=== PATIENT | male | born 1965 | race Caucasian/White ===

== ENCOUNTER 2018-07-16 05:18 | Day surgery (SDC) | payer OTHER ==
[2018-07-14 16:45] VITALS: BMI 25.8
[2018-07-16] MEDS ORDERED: BUPIVACAINE HCL/PF 0.5% (5MG/ML) 10 ML VIAL ONE (08:19)
[2018-07-16] MEDS ORDERED: MIDAZOLAM HCL 2 MG/2 ML SINGLE DOSE VIAL ONE ×4 (08:20→09:11)
--- NOTE | 2018-07-16 08:41 | HP ---
[facility] - Chief Complaint Chief Complaint: right tib fx - Past Medical History Allergies/Adverse Reactions: Allergies Allergy/AdvReac Type Severity Reaction Status Date / Time No Known Allergies Allergy Verified 07/14/18 16:30 - Current Medications Current Medications: Home Medications Medication Instructions Recorded Oxycodone HCl 5 mg PO Q4H PRN #40 capsule MDD 6 07/16/18 Satellite Physical Exam - Physical Examination Vital Signs: Vital Signs Period Temp Pulse Resp BP Sys/Allan Pulse Ox Last 24 Hr 98.1 F-98.1 F 89-89 20-20 135-135/74-74 100 General Appearance: Well Nourished, Well Developed, Alert & Oriented x3 ENT: Clear Lung: Normal air movement Heart: Regular rate & rhythm Extremities: Other (right lle- splint intact, + ttp, + swelling, decr rom, nvi xrays show displaced tibial shaft fx) Neurological: Intact, Alert, Oriented Satellite Impression/Plan - Impression/Plan Impression: right tibia fx Operative Procedure: right tibia IM soila Date to be Performed: 07/16/18
[2018-07-16] MEDS ORDERED: PROPOFOL 20 ML ONE ×2 (09:17)
[2018-07-16] MEDS ORDERED: ceFAZolin SODIUM 1 GM VIAL IVPB ONE ×2 (09:20→12:40)
--- NOTE | 2018-07-16 10:39 | OP ---
Operative Note - Note: Operative Date: 07/16/18 ([facility]) Pre-Operative Diagnosis: right tibial shaft fx Operation: right tibia IM soila Post-Operative Diagnosis: Same as Pre-op Surgeon: Paul Fritz Inward Toll Operator: Jason Elizondo Anesthesiologist/JIGSAWYER: Deb Arndt MD Anesthesia: General, Local Estimated Blood Loss (mls): 50 Operative Report Dictated: Yes
[2018-07-16] MEDS ORDERED: CEFAZOLIN 1 GM in DEXTROSE 5%-WATER - 50 ML IVPB ONE (10:42)
[2018-07-16] MEDS ORDERED: oxyCODONE HCL 5 MG TABLET PO PRN (10:52)
[2018-07-16] MEDS ORDERED: ONDANSETRON 4 MG/2 ML VIAL IVPUSH PRN (10:52)
[2018-07-16] MEDS ORDERED: PROMETHAZINE HCL 25 MG/1 ML VIAL IVPUSH PRN (10:52)
[2018-07-16] MEDS ORDERED: LACTATED RINGERS SOLUTION 1,000 ML IV SCH (11:00)
--- NOTE | 2018-07-16 11:16 | OP ---
DATE OF OPERATION: 07/16/2018 PREOPERATIVE DIAGNOSIS: Right distal one-third tibia-fibula fracture. POSTOPERATIVE DIAGNOSIS: Right distal one-third tibia-fibula fracture. PROCEDURE: Right intramedullary rodding of right tibial shaft fracture. SURGICAL ATTENDING: Paul Fritz MD WAX BLEACHER: ANNIE Hillman ANESTHESIA: General and regional. CLOSURE: A Hopkins T2 soila 360 x 11 mm with appropriate interlocks statically, number 1 Vicryl fascia, 0 and 2-0 subcutaneous, navin to skin. ESTIMATED BLOOD LOSS: 50 mL. COMPLICATIONS: None. CONDITION: To Recovery in stable condition. DESCRIPTION OF THE PROCEDURE: The patient was taken to the operating room on July 16, 2018. General anesthesia as well as regional anesthesia was administered by the anesthesiologist. IV Kefzol was administered prophylactically prior to the case. The right lower extremity was prepped and draped in the usual sterile fashion. A 6-cm longitudinal incision medial to the patella tendon was incised. Hemostasis achieved with Bovie cautery. Sharp dissection was carried down just medial to the patella tendon. A periosteal elevator was used to clear out the insertion site for the soila. A guidewire was drilled from the insertion site into the intramedullary canal. Proper placement was confirmed on the AP and lateral plane by using the imaging intensifier. This was overreamed with a proximal reamer. A ball tip guidewire was placed down the intramedullary canal passed the fracture centrally into the distal fragment. This was measured for length, reamed until a chatter was obtained at 11-1/2. A 360 x 10 mm Hopkins T2 soila was then malleted down into place. Using the outrigger, two distal screws were placed through a stab incision mediolaterally. The appropriate length screws. Two distal screws were used with the outrigger were static, two proximal screws one was static and one was dynamic. The outrigger was removed. Proper placement of all hardware with excellent reduction of the fracture was confirmed in the AP and lateral plane by using the image intensifier. All incisions were irrigated and closed with 0 Vicryl fascia, 2-0 subcutaneous, and navin to the skin. Sterile pressure dressing was applied, patient awakened from anesthesia and transferred to recovery in stable condition. No complications. Estimated blood loss less than 50 mL. Nicola KENNEDY/[id number]
[2018-07-16] MEDS ORDERED: CEFAZOLIN 1 GM/D5W 1 GM/50 ML BAG ONE (12:32)
[2018-07-16 13:22] VITALS: BP 127/92; PULSE 81; TEMP 97.8
== END 2018-07-16 13:15 | disposition home or self-care (01) ==
LOC: JASU-SURG 05:18
PROVIDERS: ATTEND Orthopaedic Surgery
PROC: 0QHG06Z Insertion of Intramedullary Internal Fixation Device into Right Tibia, Open Approach (ICD-10-PCS; 2018-07-16)
PROC: 0QHJ06Z Insertion of Intramedullary Internal Fixation Device into Right Fibula, Open Approach (ICD-10-PCS; principal; 2018-07-16 09:00)
DX: S82.231A Displaced oblique fracture of shaft of right tibia, initial encounter for closed fracture (principal); X58.XXXA Exposure to other specified factors, initial encounter; Y93.9 Activity, unspecified; Y92.9 Unspecified place or not applicable; Y99.9 Unspecified external cause status
CPT/HCPCS: 27759; C1713; 76000-TC-FY; 94760

== ENCOUNTER 2018-09-01 12:32 | Day surgery (SDC) | payer OTHER ==
[2018-08-31 08:44] VITALS: BMI 25.8
--- NOTE | 2018-09-01 09:44 | HP ---
[facility] - Chief Complaint Chief Complaint: right tibia orif - Past Medical History Allergies/Adverse Reactions: Allergies Allergy/AdvReac Type Severity Reaction Status Date / Time No Known Allergies Allergy Verified 09/01/18 08:23 - Current Medications Current Medications: Home Medications Medication Instructions Recorded Oxycodone HCl 5 mg PO Q4H PRN #30 capsule MDD 6 09/01/18 Satellite Physical Exam - Physical Examination Vital Signs: Vital Signs Period Temp Pulse Resp BP Sys/Allan Pulse Ox Last 24 Hr 98.2 F 95 18 158/96 97 General Appearance: Well Nourished, Well Developed, Alert & Oriented x3 ENT: Clear Lung: Normal air movement Heart: Regular rate & rhythm Extremities: Other (right tibia- well healed surgical incisions, rom wnl, nvi) Neurological: Intact, Alert, Oriented Satellite Impression/Plan - Impression/Plan Impression: right tibia fx s/p ORIF Operative Procedure: right tibia IM soila dynamization, iliac crest bone graft Date to be Performed: 09/01/18
--- NOTE | 2018-09-01 10:32 | OP ---
Operative Note - Note: Operative Date: 09/01/18 ([facility]) Pre-Operative Diagnosis: right tibia orif- delayed union Operation: right tibia IM soila dynamization, removal of screw, iliac crest bone grafting Post-Operative Diagnosis: Same as Pre-op Surgeon: Paul Fritz Anesthesiologist/PROTOZOOLOGIST: Mandie Durbin Anesthesia: General Specimens Removed: screw Estimated Blood Loss (mls): 10 Operative Report Dictated: Yes
--- NOTE | 2018-09-01 10:58 | OP ---
DATE OF OPERATION: 09/01/2018 PREOPERATIVE DIAGNOSIS: Delayed union, right distal tibia-fibula fracture. POSTOPERATIVE DIAGNOSIS: Delayed union, right distal tibia-fibula fracture. PROCEDURE: Iliac crest aspiration and open bone grafting of the distal tibia fracture with dynamization of the soila. SURGICAL ATTENDING: Paul Fritz MD ANESTHESIA: IV sedation. CLOSURE: Nylon 3-0. COMPLICATIONS: None. CONDITION: To recovery room in stable condition. DESCRIPTION OF OPERATIVE PROCEDURE: Patient taken to the operating room on September 01, 2018. General anesthesia with IV sedation was administered by the anesthesiologist. IV Kefzol was administered prophylactically prior to the case. The right iliac crest and right lower extremity were prepped and draped in the usual sterile fashion. First an iliac crest aspiration needle was inserted through the 2 tables of the ilium a few centimeters superior and lateral from the ASIS; 60 mL of aspirate was drawn off in different locations from the iliac crest and passed off the field to be centrifuged. A sterile pressure dressing was then applied after the needle was removed. Next our attention was directed to the tibia. It was prepped and draped in the usual sterile fashion as described earlier. Using fluoroscopic guidance through a small stab incision medially over the previously made incision the statically locked screw proximal on the soila was removed leaving the dynamic screw in place. The wound was irrigated and then the incision was closed using 3-0 nylon suture. A sterile pressure dressing was applied. Next our attention was directed to the fracture. Using fluoroscopic guidance the level of the fracture was identified. A small 2- to 3-cm longitudinal incision just lateral to the tibial crest was incised. A periosteal elevator was used to free up the periosteum on the side of the tibia at the level of the fracture. The iliac crest aspirate was mixed together with cancellous bone that was milled causing fine pieces of bone graft that were mixed together. This mixture was then inserted into the fracture site and then the skin above was closed with 3-0 nylon. Sterile pressure dressing was applied here as well. Patient awakened from anesthesia and transferred to recovery in stable condition. No complication. Estimated blood loss negligible. Nicola KENNEDY/[id number]
[2018-09-01] MEDS ORDERED: oxyCODONE HCL 5 MG TABLET PO ONE (12:35)
[2018-09-01] MEDS ORDERED: oxyCODONE HCL 5 MG TABLET ONE (12:36)
[2018-09-01 13:13] VITALS: TEMP 97.9
[2018-09-01] MEDS ORDERED: oxyCODONE HCL 5 MG TABLET PO PRN ×2 (13:28)
[2018-09-01] MEDS ORDERED: ONDANSETRON 4 MG/2 ML VIAL IVPUSH PRN (13:28)
[2018-09-01] MEDS ORDERED: LACTATED RINGERS SOLUTION 1,000 ML IV SCH (13:30)
[2018-09-01 13:53] VITALS: BP 150/98; PULSE 88
--- NOTE | 2018-09-03 14:31 | PATH ---
Surgical Pathology Report Patient Name: SHABBIR VALDERRAMA Med. Rec. #: [id number] /Age/Gender: 1965 (Age: 53) / M Account: [id number] [facility] Taken: 09/01/2018 Received: 09/01/2018 Reported: 09/03/2018 Physicians: Paul Fritz M.D. Specimen(s) Received HARDWARE RIGHT DISTAL TIBIAL SCREW Clinical History Delayed union right tibial fracture Final Diagnosis HARDWARE RIGHT DISTAL TIBIAL SCREW, REMOVAL: CONSISTENT WITH SCREW. GROSS EXAMINATION ONLY. Electronically Signed Sue Quinteros M.D. Gross Description Received fresh labeled "hardware right distal tibial screw," is a 4.4 cm in length rojo metallic screw. No soft tissue is present. No sections are submitted, gross only. /09/01/2018 [place]09/01/2018
== END 2018-09-01 13:10 | disposition home or self-care (01) ==
LOC: JASU-SURG 12:32
PROVIDERS: ATTEND Orthopaedic Surgery
PROC: 0YP90YZ Removal of Other Device from Right Lower Extremity, Open Approach (ICD-10-PCS; 2018-09-01)
PROC: 07JT3ZZ Inspection of Bone Marrow, Percutaneous Approach (ICD-10-PCS; principal; 2018-09-01 09:30)
DX: S82.301G Unspecified fracture of lower end of right tibia, subsequent encounter for closed fracture with delayed healing (principal); X58.XXXD Exposure to other specified factors, subsequent encounter
CPT/HCPCS: 76000-TC-FY; 88300-TC; 94760

== ENCOUNTER 2019-03-02 07:09 | Day surgery (SDC) | payer OTHER ==
[2019-03-01 13:16] VITALS: BMI 25.8
[2019-03-02] MEDS ORDERED: SUCCINYLCHOLINE CHLORIDE 200 MG/10 ML SYRINGE ONE (07:12)
[2019-03-02] MEDS ORDERED: MIDAZOLAM HCL 2 MG/2 ML SINGLE DOSE VIAL ONE ×2 (07:12→08:23)
[2019-03-02] MEDS ORDERED: ROCURONIUM BROMIDE 50 MG/5 ML SYRINGE ONE (07:12)
[2019-03-02] MEDS ORDERED: LIDOCAINE HCL/PF 2% SDV 5ML VIAL ONE (07:23)
[2019-03-02] MEDS ORDERED: PROPOFOL 20 ML ONE (07:24)
[2019-03-02] MEDS ORDERED: KETOROLAC TROMETHAMINE 30 MG/1 ML VIAL ONE ×2 (07:25→08:18)
[2019-03-02] MEDS ORDERED: DEXAMETHASONE SOD PHOSPHATE 4 MG/1 ML VIAL ONE ×2 (07:25→08:18)
[2019-03-02] MEDS ORDERED: oxyCODONE HCL 5 MG TABLET PO PRN ×2 (07:29)
[2019-03-02] MEDS ORDERED: ONDANSETRON 4 MG/2 ML VIAL IVPUSH PRN (07:29)
[2019-03-02] MEDS ORDERED: LACTATED RINGERS SOLUTION 1,000 ML IV SCH (07:30)
[2019-03-02] MEDS ORDERED: BUPIVACAINE HCL/PF 0.5% (5 MG/ML) 30 ML VIAL IJ ONE (07:34)
[2019-03-02] MEDS ORDERED: LIDOCAINE 1%-EPI 1:100,000 30 ML MDV IJ ONE (07:34)
--- NOTE | 2019-03-02 08:02 | HP ---
[facility] - Chief Complaint Chief Complaint: right ankle pain s/p IM soila - Past Medical History Allergies/Adverse Reactions: Allergies Allergy/AdvReac Type Severity Reaction Status Date / Time No Known Allergies Allergy Verified 03/01/19 13:18 - Current Medications Current Medications: Home Medications Medication Instructions Recorded Oxycodone HCl/Acetaminophen 1 tab PO Q6H #10 tablet MDD 4 03/02/19 [Percocet 5-325 mg Tablet] Satellite Physical Exam - Physical Examination Vital Signs: Vital Signs Period Temp Pulse Resp BP Sys/Allan Pulse Ox Last 24 Hr 98.2 F-98.2 F 91-91 20-20 150-150/97-97 98 General Appearance: Well Nourished, Well Developed, Alert & Oriented x3 ENT: Clear Lung: Normal air movement Heart: Regular rate & rhythm Extremities: Other (right ankle- + ttp, nvi) Neurological: Intact, Alert, Oriented Satellite Impression/Plan - Impression/Plan Impression: right ankle painful hardware Operative Procedure: right ankle removal of 2 screws Date to be Performed: 03/02/19
[2019-03-02] MEDS ORDERED: LIDOCAINE HCL 1%, 10 MG/ML (20ML VIAL) ONE (08:11)
[2019-03-02] MEDS ORDERED: ceFAZolin 2 GRAM PREMIX BAG IVPB ONE (08:16)
[2019-03-02] MEDS ORDERED: SODIUM CHLORIDE 0.9% P/F 10 ML VIAL IJ ONE (08:19)
[2019-03-02] MEDS ORDERED: ceFAZolin SODIUM 1 GM VIAL ONE (08:19)
[2019-03-02] MEDS ORDERED: LIDOCAINE HCL 1%, 10 MG/ML (20ML VIAL) NR ONE (08:24)
--- NOTE | 2019-03-02 08:48 | OP ---
Operative Note - Note: Operative Date: 03/02/19 ([facility]) Pre-Operative Diagnosis: right ankle painful hardware Operation: right ankle removal of 2 screws Post-Operative Diagnosis: Same as Pre-op Surgeon: Paul Fritz Anesthesiologist/RN CRITICAL CARE: Bertram Pascual Anesthesia: General, Local Specimens Removed: 2 screws Estimated Blood Loss (mls): 5
[2019-03-02 09:54] VITALS: TEMP 98
[2019-03-02 09:57] VITALS: BP 146/98; PULSE 72
--- NOTE | 2019-03-02 17:26 | OP ---
DATE OF OPERATION: 03/02/2019 PREOPERATIVE DIAGNOSIS: Painful hardware, right ankle. POSTOPERATIVE DIAGNOSIS: Painful hardware, right ankle. PROCEDURE: Removal of hardware, right ankle. SURGICAL ATTENDING: Paul Fritz MD ANESTHESIA: Local with sedation. CLOSURE: 3-0 nylon. COMPLICATIONS: None. CONDITION: To recovery in stable condition. DESCRIPTION OF OPERATIVE PROCEDURE: Patient was taken to the operating room on March 02, 2019. IV Kefzol administered prophylactically prior to the case. Right lower extremity was prepped and draped in the usual sterile fashion. The site of the 2 distal interlocking screws from his IM soila of his tibia was infiltrated with 1% Xylocaine without epinephrine. Both previous scars were used to remove the screws. Each was a small stab incision. Blunt dissection was carried down to the level of the screw, and fluoroscopic guidance was used to remove the 2 distal interlocks postoperative. X-ray confirmed that both screws had been removed. The incisions were irrigated with copious amounts of irrigation. They were both closed with 3-0 nylon suture. Sterile pressure dressing was applied. Patient awakened from anesthesia and transferred to recovery in stable condition. No complications. Estimated blood loss negligible. Nicola [id number]
--- NOTE | 2019-03-07 12:34 | PATH ---
Surgical Pathology Report Patient Name: SHABBIR VALDERRAMA [facility]. Rec. #: [id number] /Age/Gender: 1965 (Age: 53) / M Account: [id number] Location: [facility] Taken: 03/02/2019 Received: 03/02/2019 Reported: 03/07/2019 Physicians: Paul Fritz M.D. Specimen(s) Received HARDWARE ANKLE, RIGHT Clinical History Right ankle fracture Final Diagnosis HARDWARE ANKLE, RIGHT, REMOVAL: SURGICAL HARDWARE MACROSCOPIC DIAGNOSIS. Electronically Signed Niki Redding M.D. Gross Description Received fresh labeled "hardware right ankle," are 2 rojo metallic screws measuring 3.8 and 4.5 cm in length. No soft tissue is present. No sections are submitted, gross only. 03/02/201903/02/2019
== END 2019-03-02 10:15 | disposition home or self-care (01) ==
LOC: JASU-SURG 07:09
PROVIDERS: ATTEND Orthopaedic Surgery
PROC: 0SPF04Z Removal of Internal Fixation Device from Right Ankle Joint, Open Approach (ICD-10-PCS; principal; 2019-03-02 08:00)
DX: T84.84XA Pain due to internal orthopedic prosthetic devices, implants and grafts, initial encounter (principal); Y79.1 Therapeutic (nonsurgical) and rehabilitative orthopedic devices associated with adverse incidents; Y92.9 Unspecified place or not applicable; Y83.8 Other surgical procedures as the cause of abnormal reaction of the patient, or of later complication, without mention of misadventure at the time of the procedure
CPT/HCPCS: 76000-TC-FY; 88300-TC; 94760